=== PATIENT | male | born 1950 | race Caucasian/White ===

== ENCOUNTER 2016-03-03 | Outpatient (CLI) | payer OTHER | END 2016-03-03 10:05 | disposition short-term general hospital (02) | CPT/HCPCS: A0425; A0429 ==

== ENCOUNTER 2016-05-18 13:09 | Outpatient (CLI) | payer OTHER | END 2016-05-18 13:10 | disposition short-term general hospital (02) | DX: R53.1 Weakness (principal) | CPT/HCPCS: A0425; A0429 ==